=== PATIENT | male | born 1990 | race Caucasian/White ===

== ENCOUNTER 2024-09-03 00:18 | Emergency (ER) | payer OTHER, SELFPAY ==
[2024-09-03 00:30] VITALS: BP 130/86
[2024-09-03 01:21] VITALS: BP 145/88
--- NOTE | 2024-09-03 01:43 | ED.GENMED ---
History of Present Illness
General
Chief Complaint: Chest Pain
Time Seen by Provider: 09/03/24 01:30
History of Present Illness
History of Present Illness:
TIME OF INITIAL ENCOUNTER: 2 AM
HPI:
The patient has multiple complaints. He is concerned because reports a history of 'leaky valve' but has not followed up with his professional driver at [place]. He states that he does have medical insurance. He has been having some chest discomfort.
He also has presents an exacerbation of his chronic neck pain. He cannot tell me any further details about his 'leaky valve'. He denies any fevers. He denies any current drug use.
EXAM:
GENERAL: Well appearing in no distress
HEENT: Moist oral mucosa
CARDIOVASCULAR: No definite murmurs heard on exam, normal heart rate, regular rhythm, No chest wall tenderness
PULMONARY: No respiratory distress, breath sounds are clear and equal
ABDOMEN: Soft with no peritoneal signs, no tenderness
NEUROLOGIC: Excellent strength all extremities, no coordination deficits
PSYCHIATRIC: Appropriate mental status, normal insight and judgement
EXTREMITIES: Nontender, no edema, moves all extremities equally
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
NUMBER AND COMPLEXITY OF PROBLEMS ADDRESSED AT THE ENCOUNTER
� Chronic conditions affecting care: Chronic back and neck pain
� Acute Exacerbation and/or Progression of Chronic Illness: This is an acute problem
� Differential Diagnosis includes: CHF, ACS, cardiomyopathy, valvular disease however I do not hear any murmur
AMOUNT AND/OR COMPLEXITY OF DATA TO BE REVIEWED AND ANALYZED
� I performed an independent evaluation of and my interpretation is:
EKG: Sinus 74, normal axis, no acute ST abnormality
CT:
X-rays: Chest x-ray unremarkable
Laboratory Studies: White count 6.6, hemoglobin 12.0, troponin and BNP unremarkable
Other:
� Review of other/old records: No old records available for [facility] in [facility]
� Clinical information was obtained by an independent historian: None needed
� Prescriptions/Medications Considered but not given:
� Further testing considered but not performed:
RISK OF COMPLICATIONS AND/OR MORBIDITY OR MORTALITY OF PATIENT MANAGEMENT
� Social determinants of health affecting care: States he is , has insurance and is planning on following up with a professional driver but has not seen a professional driver yet
� Discussion with other providers:
� Escalation of care including admission/observation vs risk of discharge considered: Basic labs obtained, EKG normal.
ANY OTHER UPDATES:
3 AM: The patient appears comfortable on reassessment. Patient to follow-up with professional driver as an outpatient.
Phy Exam
Physical Exam
Physical Exam:
See HPI
Scores
Heart Score for Chest Pain Patients
STEMI patient?: Not applicable
Course
Orders/Labs/Results
Orders:
Orders
09/03/24 00:19
Electrocardiogram (*1) Urgent
Reason for Study: Chest Pain
EKG- Treatment ONCE
09/03/24 02:03
Ketorolac [Toradol] 15 mg IV NOW STA
CR Chest - 2 Views Urgent
Comment:
Reason For Exam: pain
09/03/24 02:10
Complete Blood Count/With Diff Urgent
Comprehensive Metabolic Panel Urgent
NT-proBNP Urgent
Troponin I Urgent
Abnormal Lab Results
09/03/24
02:10
RBC 3.99 L 10^6/uL
(4.70-6.10)
Hgb 12.0 L g/dL
(13.0-18.0)
Hct 33.5 L %
(39.0-52.0)
Monocytes % 9.5 H %
(1.7-9.3)
Glucose 121 H mg/dl
(70-99)
09/03/24 02:10
09/03/24 02:10
Vital Signs
Initial and Last Documented VS:
Initial Vital Signs
Temp Pulse Resp BP Pulse Ox
98.6 F 80 24 130/86 98
09/03/24 00:30 09/03/24 00:30 09/03/24 00:30 09/03/24 00:30 09/03/24 00:30
Last Documented Vital Signs
Temp Pulse Resp BP Pulse Ox
98.6 F 70 18 145/88 98
09/03/24 00:30 09/03/24 01:45 09/03/24 02:00 09/03/24 01:21 09/03/24 01:45
*Critical Care Note
Total Time (30-74mins, 75-104mins- exclusive of procedures): Not Applicable
ED Attending Note
-
Portions of this chart may have been created with voice recognition software.� Occasional wrong word or��sound alike� substitutions may have occurred due to the inherent limitations of voice recognition software.
Discharge Plan
Departure
Referrals:
Mercedes Soto MD [Family Provider] -
Interventions
Interventions:
*Risk Screen - Suicide Last Done: 09/03/24 00:30
*Neglect/Abuse Screening Last Done: 09/03/24 00:30
ED- Fall Risk Assessment Last Done: 09/03/24 02:49
ED- Cardiac Assessment Last Done: 09/03/24 02:49
Discharge Date and Time
Print Language: BHUTANESE
[2024-09-03] MEDS: TORADOL 15 MG IV (02:10)
[2024-09-03 02:35] LABS: ALT (SGPT) 19 U/L (0-50); AST (SGOT) 22 U/L (17-59); Albumin 4.3 g/dl (3.5-5.0); Alkaline Phosphatase 52 U/L (38-126); Blood Urea Nitrogen 15 mg/dl (9-20); Calcium 9.4 mg/dl (8.4-10.2); Carbon Dioxide 26 mmol/L (22-30); Chloride 103 mmol/L (98-107); Glucose 121 mg/dl (70-99); Sodium 141 mmol/L (135-145); Total Bilirubin 0.3 mg/dl (0.2-1.3); Total Protein 6.6 g/dl (6.3-8.2); eGFR > 60.00
[2024-09-03 02:38] LABS: % Basophils 0.6 % (0-2); % Eosinophils 2.6 % (0-6); % Immature Granulocytes 0.2 % (0-0.5); % Lymphocytes 31.4 % (20.5-51.1); % Monocytes 9.5 % (1.7-9.3); % Neutrophils 55.7 % (42.2-75.2); Absolute Eosinophils 0.2 10^3/uL (0-0.7); Absolute Lymphocytes 2.1 10^3/uL (1.2-3.4); Absolute Monocytes 0.6 10^3/uL (0.1-0.6); Absolute Neutrophils 3.7 10^3/uL (1.4-6.5); Hematocrit 33.5 % (39.0-52.0); Mean Corp Hgb Conc. 35.8 g/dL (33.0-37.0); Mean Corpuscular Hgb 30.1 pg (27.0-31.0); Mean Platelet Volume 8.9 fL (7.4-10.4); Nucleated Red Blood Cells % 0 % (-); Platelet Count 243 10^3/uL (130-400); Red Blood Cell Count 3.99 10^6/uL (4.70-6.10); Red Cell Dist. Width 13.2 % (11.5-14.5); White Blood Cell Count 6.6 10^3/uL (4.8-10.8)
[2024-09-03 02:45] LABS: NT-proBNP < 20.0 pg/ml; Troponin I < 0.012 ng/ml
== END 2024-09-03 03:40 | disposition home or self-care (01) ==
LOC: EMR 00:18
PROVIDERS: EMERGENCY PHYSICIAN Emergency Medicine; FAMILY PHYSICIAN Internal Medicine
DX: R07.89 Other chest pain (principal)
CPT/HCPCS: 99285; 96374; 71046; 80053; 83880; 84484; 85025; 93005